=== PATIENT | female | born 1980 | race Asian ===

== ENCOUNTER 2020-05-23 14:30 | Outpatient (CLI) | payer BC ==
--- NOTE | 2020-05-23 15:55 | CT ---
ABDOMEN AND PELVIC CT SCAN WITH AND WITHOUT IV CONTRAST: HISTORY: Microhematuria, bloating, back pain. FINDINGS: The lung bases appear clear. Small right lobe of liver cyst. Somewhat contracted gallbladder withou t evidence for gallstones or acute cholecystitis. Pancreas, spleen, and adrenal glands are unremarka ble. No evidence for renal calculus or acute obstruction. No evidence for solid or cystic renal mass. The urinary bladder appears unremarkable. No CT evidence for acute appendicitis. There is a somewhat multiseptated mostly cystic mass in the left adnexal region which in total measures approxim ately 3.3 x 5.6 cm in size, the largest cystic component measures 3.5 x 4.6 cm. Right adnexal region is unremarkable. No abnormal abdominal or pelvic fluid collection. No evidence for adenopathy. Po ssible small hiatal hernia. IMPRESSION: Somewhat multiseptated cyst or cystic mass in the left adnexa. Depending upon concern, followup with pelvic ultrasound study might be of benefit. No evidence for renal calculus or solid or cystic trini l mass or obstruction. POS: RRE
== END 2020-05-23 14:31 | disposition home or self-care (01) ==
LOC: SCSCT 14:30
PROVIDERS: ATTEND Family Medicine
DX: R31.29 Other microscopic hematuria (principal); N89.8 Other specified noninflammatory disorders of vagina
CPT/HCPCS: 74178